=== PATIENT | male | born 1960 | race American Indian/Alaskan Native ===

== ENCOUNTER 2019-02-24 07:50 | Outpatient (CLI) | payer MEDICAID ==
--- NOTE | 2019-02-24 10:03 | XRay Report ---
THORACIC SPINE 3 VIEWS INDICATION / CLINICAL INFORMATION: M54.6 PAIN IN THORACIC SPINE. COMPARISON: None available. FINDINGS: No significant skeletal abnormality. Alignment is normal. Signer Name: Isaak Lopez MD FACJyothi Signed: 02/24/2019 9:58 AM Workstation Name: [id number]
== END 2019-02-24 07:51 | disposition home or self-care (01) ==
LOC: XRAY 07:50
PROVIDERS: ATTEND Anesthesiology
DX: M54.6 Pain in thoracic spine (principal)
CPT/HCPCS: 72072